=== PATIENT | female | born 1990 | race Caucasian/White ===

== ENCOUNTER → 2017-01-09 | Outpatient (CLI) | payer OTHER ==
[~2017-01-09] MED LIST: DOXY100T17 PO; MTR600X PO; PRENTAB26 PO
[2017-01-09 15:10] LABS: THYROID STIMULATING HORMONE 0.307 uIu/ml (0.300-4.500)
[2017-01-09 15:34] LABS: PREG INTERNAL NEGATIVE QC NEG CLEAR BACKGROUND; PREG INTERNAL POSITIVE QC POS CONTROL LINE
[2017-01-12 02:35] LABS: CHLAMYDIA TRACH RNA*** NOT DETECTED (NOT DETECTED); GC (NEIS GONORRHOEAE)RNA** NOT DETECTED (NOT DETECTED)
== END ==
LOC: MERGE 13:39 → C.LAB1850 13:39
PROVIDERS: ATTEND Obstetrics & Gynecology
DX: R10.9 Unspecified abdominal pain (principal); N91.2 Amenorrhea, unspecified

== ENCOUNTER → 2017-01-09 | Outpatient (CLI) | payer OTHER | LOC: C.PAPS 16:17 → MERGE 16:17 | PROVIDERS: ATTEND Obstetrics & Gynecology | DX: Z12.4 Encounter for screening for malignant neoplasm of cervix (principal) ==

== ENCOUNTER 2017-02-11 22:55 | Emergency (ER) | payer OTHER ==
[~2017-02-11] VITALS: Ht 160 cm; Wt 58.3 kg
[~2017-02-11 22:55] MED LIST changes: -DOXY100T17 PO
[2017-02-11 23:02] VITALS: TEMP 36.4; Ht 160 cm; Wt 58.3 kg
--- NOTE | 2017-02-11 23:58 | EMERGENCY ROOM VISIT NOTE ---
History Report prepared by Scribe: Marisela Salcedo Under the Supervision of: Dr. Toan Vela D.O. First contact with patient: 23:49 Chief Complaint: RASH Stated Complaint: WEIRD PANKAJ ON LEG THAT FAULKNER & ITCHES History of Present Illness The patient is a 26 year old female who presents to the Emergency Room with complaints of a persistent rash on her right leg for the past 3 weeks. She states the rash "faulkner and itches" and is shaped like a bulls-eye. She rates her discomfort as a 5/10. The patient also admits to some bilateral ankle swelling recently. She denies any chance of being stating her menstrual period recently ended. She also denies any recent fevers or other symptoms. 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 A total of 10 systems reviewed and were otherwise negative. Past Medical & Surgical Medical Problems: (1) Anemia (2) Asthma Social History Smoking Status: Never Smoker Alcohol Use: occasionally Drug Use: none Marital Status: in relationship Housing Status: lives with family Occupation Status: unemployed Current/Historical Medications Scheduled Doxycycline (Monohydrate) (Doxycycline Monohydrate), 100 MG PO BID Allergies Coded Allergies: No Known Allergies (Unverified , 02/12/17) Physical Exam Vital Signs Date Time Temp Pulse Resp B/P (MAP) Pulse Ox O2 Delivery O2 Flow Rate FiO2 02/12/17 00:36 78 18 109/70 97 02/11/17 23:02 36.4 75 16 113/81 99 Room Air Physical Exam GENERAL: Patient is awake, alert, in no acute distress, patient is resting comfortably and showing no signs of anxiety EYES: The conjunctivae are clear. The pupils are round and reactive. EARS, NOSE, MOUTH AND THROAT: The nose is without any evidence of any deformity. Mucous membranes are moist tongue is midline NECK: The neck is nontender and supple. RESPIRATORY: Normal respiratory effort is noted there is no evidence of wheezing rhonchi or rales CARDIOVASCULAR: Regular rate and rhythm noted there no murmurs rubs or gallops normal S1 normal S2 GASTROINTESTINAL: The abdomen is soft. Bowel sounds are present in all quadrants. Abdomen is nontender MUSCULOSKELETAL/EXTREMITIES: There is no evidence of gross deformity full range of motion is noted in the hips and shoulders SKIN: Bulls eye rash noted in right inguinal region, no surrounding cellulitis. There are no petechiae, pallor or cyanosis noted. NEUROLOGIC: Patient is awake alert and oriented x3 Medical Decision & Procedures Laboratory Results Test 02/11/17 23:56 Lyme Disease IgG Antibody POS (NEG) Laboratory results per my review. Medications Administered Medications (Trade) Dose Ordered Sig/Chaparrita Route Start Time Stop Time Status Last Admin Dose Admin Doxycycline Hyclate (Vibramycin Cap) 200 mg ONE ONCE PO 02/12/17 00:00 02/12/17 00:01 DC 02/12/17 00:01 200 MG ED Course 2351: The patient was evaluated in room C6. A complete history and physical examination were performed. 0000: Vibramycin Cap 200 mg PO. 0020: I reevaluated the patient. She is resting comfortably. I discussed her results and discharge instructions and she verbalized complete understanding and agreement. Medical Decision Prior records/ancillary studies reviewed. Triage Nursing notes reviewed. The patient's history was concerning for a rash. Differential diagnosis: Etiologies such as contact dermatitis, viral exanthem, urticaria, allergic reaction, Platt-Esequiel syndrome, toxic epidermal necrolysis, erythema multiforme, cellulitis, scabies, HSV, varicella, zoster, eczema, staph scalded skin syndrome, fungal infection, as well as others were entertained. The patient is a 26-year-old female who presented to the emergency department for an evaluation of rash. The patient appeared to have a rash consistent with Lyme disease in her right groin. She was started on doxycycline. She was encouraged to follow-up with her primary care physician for repeat test in one week. She was also encouraged to continue using Motrin and Tylenol for pain and return to the emergency department immediately if symptoms change worsen or the need arises. Medication Reconcilliation Current Medication List: was personally reviewed by me Blood Pressure Screening Patient's blood pressure: Normal blood pressure Blood pressure disposition: Did not require urgent referral Impression Primary Impression: Rash Additional Impression: Erythema migrans (Lyme disease) Scribe Attestation The scribe's documentation has been prepared under my direction and personally reviewed by me in its entirety. I confirm that the note above accurately reflects all work, treatment, procedures, and medical decision making performed by me. Departure Information Dispostion Home / Self-Care Prescriptions Doxycycline (Monohydrate) (DOXYCYCLINE MONOHYDRATE) 100 Mg Tab 100 MG PO BID, #42 TABS Prov: Toan Vela, DO 02/12/17 Referrals No Doctor, Assigned (PCP) Patient Instructions ED Lyme Disease, [facility] Additional Instructions Call your family in the morning to schedule follow-up appointment. Continue all medications as prescribed. Problem Qualifiers
[2017-02-12] MEDS ORDERED: DOXYCYCLINE HYCLATE 100 MG CAP PO ONE
[2017-02-12] MEDS ORDERED: DOXY100T17 PO (00:09)
[2017-02-12 00:36] VITALS: BP 109/70; PULSE 78; O2SAT 97
[2017-02-12 01:25] LABS: LYME DISEASE AB IGM NEG (NEG)
[2017-02-12 01:29] LABS: LYME DISEASE AB IGG POS (NEG)
[2017-02-16 09:19] LABS: 18KDIGG BAND REACTIVE (NONREACTIVE); 23KDIGG BAND REACTIVE (NONREACTIVE); 23KDIGM BAND NONREACTIVE (NONREACTIVE); 28KDIGG BAND REACTIVE (NONREACTIVE); 30KDIGG BAND NONREACTIVE (NONREACTIVE); 39KDIGG BAND REACTIVE (NONREACTIVE); 39KDIGM BAND NONREACTIVE (NONREACTIVE); 41KDIGG BAND REACTIVE (NONREACTIVE); 41KDIGM BAND NONREACTIVE (NONREACTIVE); 45KDIGG BAND REACTIVE (NONREACTIVE); 58KDIGG BAND REACTIVE (NONREACTIVE); 66KDIGG BAND REACTIVE (NONREACTIVE); 93KDIGG BAND REACTIVE (NONREACTIVE)
--- NOTE | 2017-02-19 11:38 | Pharmacy Progress Note ---
ED Pharmacist Culture FollowUp Date of Service: Feb 19, 2017. Patient was sent home with a prescription for doxycycline x21 days, which should cover the Lyme positively identified in the patient's serology.
== END 2017-02-12 00:37 | disposition home or self-care (01) ==
LOC: C.EDB 22:56 → C.EDC 02-12 00:37
DX: R21 Rash and other nonspecific skin eruption (principal); A26.0 Cutaneous erysipeloid; A69.20 Lyme disease, unspecified; D64.9 Anemia, unspecified; J45.909 Unspecified asthma, uncomplicated